=== PATIENT | female | born 1965 | race Caucasian/White ===

== ENCOUNTER 2021-05-16 14:24 | Emergency (ER) | payer OTHER ==
[~2021-05-16] VITALS: Ht 149.9 cm; Wt 77.1 kg
[~2021-05-16 14:24] MED LIST: CIPRO500 MG PO; DIOVAN40 MG PO; FLAGYL500MG PO; GLUCOPHAGE XR500 MG PO; Intestinex CAP PO; LEVOTHYROXINE150 MCG PO; POM (MEDICAMENTO EN PO; SYNTHROID50 MCG PO; ZANTAC150 MG PO
== END 2021-05-16 23:01 | disposition home or self-care (01) ==
LOC: ER 14:24
DX: R10.32 Left lower quadrant pain (principal)